=== PATIENT | male | born 2005 | race African-American/Black ===

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

== ENCOUNTER 2024-01-06 10:28 | Outpatient (AMB) | payer MEDICAID, SELFPAY ==
--- NOTE | 2024-01-06 10:40 | A.OFFVIS_ITS ---
Intake Visit Reasons: penile cyst Intake Note: New Patient presents today for initial visit to establish treatment for : Penile Cyst Urology Medications: none Allergies to Antibiotic: none Blood Thinner: none Coat Repair Inspector Required: No Accompanied by: Unknown Allergies No Known Allergies [No Known Allergies*] Allergy (Verified 01/06/24 11:04) Medication List - Last Reconciled 01/06/24 by DEVONTE Avalos doxycycline hyclate 100 mg PO BID 14 days HPI Comments Details: Allen Gordon is a pleasant 18-year-old male patient of Dr. Seaman who was accompanied by his cream at today's office visit. He has a past medical history of depression, asthma, and anxiety. He presents to the office today as a new patient for penile lesion. In discussion with the patient today reports area of concern has been present for over 1-2 years. He denies any pain. He reports having followed up with his PCP at which time recommendations were made for urology referral for further assessment evaluation. In assessment of the patient today the penis is circumcised. It appears patient has very small er aser size sebaceous cyst to the base/posterior side on the shaft of the penis. Upon assessment today no open areas or drainage noted. Upon pressure to the area no drainage noted. However patient does report at times fluid like material does come out of the area. When asked he does report he is sexually active with one partner however does not use condoms/contraception. He otherwise denies any bothersome urinary issues or concerns. He denies urinary urgency, urinary frequency, incontinence, nocturia, hematuria, dysuria, foul smelling urine, changes to urinary stream, flank pain, fever, and or chills. He is happy with his current voiding parameters. In office urinalysis results reviewed with the patient today. He otherwise offers no other issues or concerns at this time. [facility] Medical History Depression Anxiety Asthma Social History Alcohol intake: never Patient Tobacco Use Status: Current everyday Tobacco user Substance Use Type: Marijuana Review of Systems Const All systems reviewed & are unremarkable except as noted in HPI and below Physical Exam Const General: cooperative, healthy appearing, comfortable, no acute distress, well developed, alert and awake Nutritional Appearance: thin Orientation/consciousness: patient oriented x3 Limitations: no limitations HEENT Head: Yes normal to inspection, Yes normocephalic and Yes atraumatic Ears: hearing grossly normal bilaterally Eyes General: appearance normal, both eyes and all related structures Neck Neck: Yes normal visual inspection and Yes trachea midline Chest Chest palpation & inspection: normal inspection of the chest Resp Effort & Inspection: normal respiratory effort and able to speak in complete sentences Cardio Rate: regular rate GI Inspection: Yes normal to inspection Other: as per HPI General: Yes no CVA tenderness Penis: normal penis and circumcised Meatus: meatus normal Scrotum: scrotum normal Testes: Testes normal Back/Spine/Pelvis Back: no CVA tenderness Skin General skin exam: no rashes or lesions noted Neuro General: patient oriented x3 Extrem General: Yes normal to inspection Psych Appearance: grossly normal and well kempt Mental Status: mental status grossly normal Speech and movement: Normal speech and movement present and Clear speech present Affect: normal affect Attitude: cooperative Thought process: Normal thought process present Thought content: Normal thought content present Insight: Fair insight present (Psych) Judgement: Fair judgement present (Psych) Results AMB Urinalysis, Automated UA Leukoctes 0 Blayne/uL Last Edit by [employer] on 01/06/24 11:02 UA Nitrite Negative Last Edit by [employer] on 01/06/24 11:02 UA Urobilinogen 0.2 mg/dL Last Edit by [employer] on 01/06/24 11:02 UA Protein 0 mg/dL Last Edit by [employer] on 01/06/24 11:02 UA pH 7.0 Last Edit by [employer] on 01/06/24 11:02 UA Blood 0 Artur/uL Last Edit by [employer] on 01/06/24 11:02 UA Specific [place] 1.015 Last Edit by [employer] on 01/06/24 11:02 UA Ketone Negative Last Edit by [employer] on 01/06/24 11:02 UA Bilirubin 0 mg/dL Last Edit by [employer] on 01/06/24 11:02 UA Glucose 0 mg/dL Last Edit by [employer] on 01/06/24 11:02 Results Reviewed Results Reviewed: Laboratory Last Values Urine pH (Auto) 7.0 01/06/24 10:47 Specific [place] (Auto) 1.015 01/06/24 10:47 Urine Protein (Auto) 0 mg/dL 01/06/24 10:47 Glucose (UA)(Auto) 0 mg/dL 01/06/24 10:47 Urine Ketones (Auto) Negative 01/06/24 10:47 Urine Blood (Auto) 0 Artur/uL 01/06/24 10:47 Urine Nitrite (Auto) Negative 01/06/24 10:47 Urine Bilirubin (Auto) 0 mg/dL 01/06/24 10:47 Urine Urobilinogen (Auto) 0.2 mg/dL 01/06/24 10:47 Leukocyte Esterase (Auto) 0 Blayne/uL 01/06/24 10:47 Assessment & Plan Assessment & Plan (1) Sebaceous cyst of penis: Code(s): N48.89 - Other specified disorders of penis Category: Medical Plan In office urinalysis results reviewed with the patient today; as noted above. Discussed at length proper care of area; discussed avoiding shaving; discussed trimming. Start doxycycline as discussed and prescribed. Discuss treatment options for sebaceous cyst to include incision and drainage; risks and benefits of these interventions were discussed; versus surveillance monitoring. Discussed and stressed the importance of STD prevention. Patient reports be happy with current voiding parameters He denies any bothersome urinary issues or concerns. Follow-up in 1-2 months; or sooner with any issues, concerns, and or questions. Orders: Orders AMB Urinalysis Automated Today Z13.9 - Encounter for screening, unspecified Medications: New doxycycline hyclate 100 mg PO BID 28 tabs 0RF 14 days N39.0 - Urinary tract infection, site not specified, N45.1 - Epididymitis Patient Instructions: The patient had an opportunity to ask questions regarding the treatment plan. All questions were answered. Physical exam, labs, and imaging were discussed and reviewed in detail. As well as risks, benefits, and discussion of treatment choices. No major barriers to understanding were identified. The patient expressed understanding and agreement with the above treatment plan. The patient was made aware they should contact our office by phone for worsening of their current condition, the appearance of new symptoms, or with any questions or concerns. Compliance is encouraged with any medications and follow up testing that is ordered. It is a privilege to be allowed the opportunity to participate in? your urological care.? Again, if you have any questions or concerns If you have any questions or concerns please do not hesitate to contact me. The office is [phone]. This note is constructed using voice recognition software. While every effort has been made to ensure accuracy hides soaker errors may have been included. Yours sincerely, DEVONTE Avalos Coding Level of Care Code New Pt Level 4 (96109) Diagnoses Sebaceous cyst of penis N48.89
== END 2024-01-06 11:04 | disposition home or self-care (01) ==
PROVIDERS: PCP Pediatrics; Visit Provider Nurse Practitioner Family
DX: N48.89 Other specified disorders of penis (principal); Z13.9 Encounter for screening, unspecified
CPT/HCPCS: 99204

== ENCOUNTER → 2024-01-06 10:28 | Outpatient (BNVA) | payer OTHER, MEDICAID, SELFPAY | PROVIDERS: PCP Pediatrics; Visit Provider Nurse Practitioner Family | DX: N48.89 Other specified disorders of penis (principal) | CPT/HCPCS: 81003; 99212 ==

== ENCOUNTER 2024-05-27 08:25 | Emergency (ER) | payer OTHER, SELFPAY ==
--- NOTE | ~2024-05-27 | XR_ITS ---
EXAMINATION: XR KNEE, LEFT CLINICAL INFORMATION: Left knee pain after injury COMPARISON: None available. TECHNIQUE: Four views of the left knee. FINDINGS: There is a moderate joint effusion. There is an ill-defined radiodensity, overlying the intercondylar notch best seen on the lateral view, uncertain the location or significance. Internal derangement with an osseous avulsion is a possibility here. MRI advised. XR/XR knee LT 2V IMPRESSION: Joint effusion and question of internal derangement. Electronically signed by: Dmitriy Lee MD 05/27/2024 09:07 AM EDT
[2024-05-27 08:31] VITALS: BP 103/65; PULSE 70; RESP 16; TEMP 36.9; O2SAT 98; BMI 16.5
--- NOTE | 2024-05-27 08:36 | ED_ITS ---
HPI - General Adult General Chief complaint: Extremity Injury, Lower Stated complaint: knee popped Time Seen by Provider: 05/27/24 08:36 Source: patient Mode of arrival: wheelchair Limitations: no limitations History of Present Illness ED Provider: Daylin Garcia PA-C HPI narrative: Patient is a 18 year old assigned male at with a history of depression, anxiety, and asthma presenting to the emergency department today with left knee pain. Patient states that he was playing football yesterday when he tried to do a spin move and felt / heard a pop in his left knee. Patient denies any dizziness, lightheadedness, abdominal pain, nausea, vomiting, fever, chills, blurry vision, double vision, loss of vision, chest pain, difficulty breathing, shortness of breath, back pain, night sweats, pain with urination, increased urinary frequency, increased urinary urgency, blood in his urine or stool, syncope or a near syncopal episode, bowel incontinence, bladder incontinence, or any other complaints at this time. Onset (ago): day(s) (1) Location: left and lower extremity Relieving factors: immobilization Exacerbating factors: movement Associated symptoms: denies other symptoms Treatments prior to arrival: none Related Data Previous Rx's ?Medication ?Instructions ?Recorded doxycycline hyclate 100 mg tablet 100 mg PO BID 14 days #28 tabs 01/06/24 Allergies Allergy/AdvReac Type Severity Reaction Status Date / Time No Known Allergies Allergy Verified 05/27/24 08:33 [No Known Allergies*] Review of Systems Constitutional: Constitutional: Reports no additional constitutional complaints, Denies chills, Denies fever(s) and Denies night sweats Eyes: Eyes: Reports no additional eye complaints, Denies blurry vision, Denies change in vision, Denies diplopia, Denies eye discharge, Denies loss of vision and Denies eye pain ENT: Denies dizziness Cardiovascular: Cardiovascular: Reports no additional cardiovascular complaints, Denies chest pain, Denies lightheadedness, Denies Loss of Consciousness and Denies dyspnea Respiratory: Respiratory: Reports no additional respiratory complaints and Denies dyspnea Gastrointestinal: Gastrointestinal: Reports no additional gastrointestinal complaints, Denies abdominal pain, Denies melena, Denies hematochezia, Denies change in bowel habits and Denies change in stool character Genitourinary: Genitourinary: Reports no additional male genitourinary complaints, Denies hematuria, Denies oliguria, Denies difficulty urinating, Denies dysuria, Denies urinary frequency, Denies urinary hesitancy, Denies urinary incontinence and Denies urinary urgency Musculoskeletal: Musculoskeletal: Reports no additional musculoskeletal complaints, Denies numbness and Denies tingling Comments: left knee pain Neurologic: Denies dizziness, Denies loss of vision, Denies numbness and Denies tingling Psychiatric: Psychiatric: Reports no additional psychiatric complaints Endocrine: Endocrine: Reports no additional endocrine complaints Hematologic/Lymphatic: Hematologic/Lymphatic: Reports no additional hemato logic/lymphatic complaints Allergic/Immunologic: Allergic/Immunologic: Reports no additional allergic/immunologic complaints [facility] Past Medical History Attestation statement: The following information was validated with the patient. Source: old records reviewed and nursing notes reviewed Medical History Depression Anxiety Asthma Social History Social History Alcohol intake: never Patient Tobacco Use Status: Current everyday Tobacco user Smoked in Last 30 Days: No Use of substances other than those prescribed or required for medical reasons: No Substance Use Type: Marijuana Advance Directives: No Physical Exam ED Vital Signs: Vital Signs - 24 hr 05/27/24 08:31 05/27/24 08:56 05/27/24 09:49 Temperature 98.4 F 98.0 F 98.2 F Pulse Rate 70 78 78 Respiratory Rate 16 16 18 Blood Pressure 103/65 104/60 104/60 Pulse Oximetry 98 98 Oxygen Delivery Method Room Air Room Air Room Air BMI result Body Mass Index 16.5 Const General: cooperative, no acute distress, alert and awake Nutritional Appearance: well nourished Orientation/consciousness: patient oriented x3 Limitations: no limitations HENMT Head: Yes normal to inspection and Yes atraumatic Ears: hearing grossly normal bilaterally and external ears normal General nose exam: Normal external nose present, no nasal discharge noted and no epistaxis Face and sinus: Yes normal facial exam, No abrasion and No laceration Mouth: Normal oral and palatal mucosa present, no drooling and no muffled voice Eyes General: appearance normal, both eyes and all related structures Periorbital: periorbital findings normal Eyelids: Yes eyelids normal Conjunctivae: conjunctivae normal Pupils: Equal, round and reactive pupils present EOM: EOMs intact bilaterally Neck Neck: Yes normal visual inspection, Yes full ROM and Yes no lymphadenopathy Chest Chest palpation & inspection: normal inspection of the chest Resp Effort & Inspection: normal respiratory effort and able to speak in complete sentences GI Inspection: Yes normal to inspection Neuro General: patient oriented x3 and moves all extremities Cranial nerves: Yes Equal, round and reactive pupils present Cognition (Neuro): normal cognition Extrem Other: pain with left knee ROM positive anterior drawer test of the left knee General: Yes normal to inspection and Yes capillary refill normal Psych Appearance: grossly normal Mental Status: mental status grossly normal Affect: normal affect Attitude: cooperative Thought process: Normal thought process present Thought content: Normal thought content present Insight: Good insight present (Psych) Procedures Orthopedic Splinting/Casting Injury #1: Side: left Lower Extremity Injury Location: knee Lower Extremity Immobilizer: knee immobilizer Other Orthopedic Equipment: crutches Medical Decision Making Medical Decision Making MDM Narrative: Patient is a 18 year old assigned male at with a history of anxiety, depression, and asthma presenting to the emergency department today with left knee pain. Patient's physical exam was as noted in the physical exam portion of this note. Patient's left knee x-ray showed a joint effusion and question of internal derangement. Patient's clinical presentation is most consistent with an ACL injury vs. sprain. I explained my physical exam findings as well as all test results to the patient. I answered all questions asked by the patient. Patient's left knee was placed in an immobilizer, without incident. Patient's PMS was intact prior to and after immobilizer was placed. Patient was given crutches and crutch instructions. I stressed the importance of the patient taking his medication as directed (either prescribed or as the over the counter packaging recommends). I stressed the importance of the patient following up with his primary care provider and an orthopedic provider. I stressed the importance of the patient returning to the emergency department immediately if his symptoms were to worsen or if he were to develop any dizziness, shortness of breath, difficulty breathing, chest pain, blurry vision, loss of vision, nausea, vomiting, abdominal pain, fever, chills, back pain, or any other complaints. Patient verbalized agreement and understanding with this treatment plan and discharge. Differential Diagnosis Differential Diagnoses: The differential diagnosis associated with the presentation includes Left ACL injury Left knee sprain Left knee strain Admission/Observation Consideration of admission/observation: Escalation of care including admission/observation considered Patient would have been admitted to the hospital had his work up had any findings where hospital admission was appropriate and his clinical presentation warranted hospital admission. Independent Interpretation I performed an independent interpretation of an: Plain X-Ray Interpretation: My interpretation is in agreement with the radiologist's impression of this imaging study. EXAMINATION: XR KNEE, LEFT CLINICAL INFORMATION: Left knee pain after injury COMPARISON: None available. TECHNIQUE: Four views of the left knee. FINDINGS: There is a moderate joint effusion. There is an ill-defined radiodensity, overlying the intercondylar notch best seen on the lateral view, uncertain the location or significance. Internal derangement with an osseous avulsion is a possibility here. MRI advised. XR/XR knee LT 2V IMPRESSION: Joint effusion and question of internal derangement. Electronically signed by: Dmitriy Lee MD 05/27/2024 09:07 AM EDT Dictated By: Dmitriy Lee MD Signed By: Electronically signed by Dmitriy Lee MD 05/27/24 0907 Radiology Impression Discussion of test interpretation with radiology: I have reviewed the radio logist's reading. Discharge Plan Discharge Clinical Impression: Injury of knee, Knee sprain Patient Disposition: Home, Self-Care Instructions: Knee Sprain (DC), Crutch Instructions (ED) Additional Instructions: Your examination and x-ray of the left knee are concerning for an ACL injury. Please wear the knee immobilizer as directed. Follow up with your primary care provider and an orthopedic provider. Return to the emergency department immediately if your symptoms worsen or if you develop any dizziness, shortness of breath, difficulty breathing, chest pain, blurry vision, loss of vision, nausea, vomiting, abdominal pain, fever, chills, back pain, or any other complaints. Prescriptions: No Action doxycycline hyclate 100 mg tablet 100 mg PO BID 14 Days Qty: 28 0RF Referrals: [facility] Family Medicine [Provider Group] (Call to establish and follow up with a primary care provider. If you already have a primary care provider, please follow up with them.) [facility], [place] [Provider Group] (Call to establish and follow up with a primary care provider. If you already have a primary care provider, please follow up with them.) [facility],[place] [Provider Group] (Call to establish and follow up with a primary care provider. If you already have a primary care provider, please follow up with them.) [facility] [Provider Group] (Call to establish and follow up with an orthopedic provider. ) Stand Alone Forms: Work/School Release Interventions: ED Discharge Assessment Last Done: 05/27/24 09:49 Discharge Date/Time: 05/27/24 09:49 Print Language: [place]i
[2024-05-27 08:56] VITALS: BP 104/60; PULSE 78; RESP 16; TEMP 36.7
[2024-05-27 09:49] VITALS: BP 104/60; PULSE 78; RESP 18; TEMP 36.8; O2SAT 98
== END 2024-05-27 09:49 | disposition home or self-care (01) ==
PROVIDERS: Emergency Provider Emergency Medicine Emergency Medical Services
DX: S83.92XA Sprain of unspecified site of left knee, initial encounter (principal); X58.XXXA Exposure to other specified factors, initial encounter; Y93.61 Activity, american tackle football; Y92.9 Unspecified place or not applicable; Y99.9 Unspecified external cause status; M25.562 Pain in left knee
CPT/HCPCS: 73560; 99283; 99284

== ENCOUNTER 2024-07-02 10:17 | Outpatient (REF) | payer MEDICARE, MEDICAID, SELFPAY | END 2024-07-02 10:18 | disposition home or self-care (01) | LOC: HO.HOSX 10:17 | PROVIDERS: Visit Provider Physician Assistant | DX: Z13.89 Encounter for screening for other disorder (principal) ==

== ENCOUNTER 2024-07-13 12:07 | Outpatient (REF) | payer MEDICARE, MEDICAID, SELFPAY | END 2024-07-13 12:08 | disposition home or self-care (01) | LOC: HO.HOSX 12:07 | PROVIDERS: Visit Provider Physician Assistant | DX: M25.562 Pain in left knee (principal); M23.92 Unspecified internal derangement of left knee | CPT/HCPCS: 73560; 99202 ==

== ENCOUNTER 2024-07-13 12:51 | Outpatient (AMB) | payer MEDICARE, MEDICAID, SELFPAY ==
--- NOTE | 2024-07-13 13:05 | A.OFFVIS_ITS ---
Intake Visit Reasons: NON [employer]CHOOL [employer]ER-Injury of knee, Knee sprain-DOI 05/27/24 Intake Note: Allen a 18 year old male who presents today for a new patient evaluation of left knee, DOI 05/26/24. Patient reports that he was playing football when he attempted a spin move and felt/heard a pop. He presented to [facility] ER the followi ng day, x-rays were taken, placed in a knee immobilizer and was referred to orthopedics. Currently he has pain and tugging at the anterior and posterior aspect knee with ambulation. No pain with rest. No previous tx. Allergies No Known Allergies [No Known Allergies*] Allergy (Verified 07/13/24 13:15) Medication List - Last Reconciled 07/13/24 by Macey Morton PA-C No Known Home Meds HPI HPI NON C[employer]ICAL [employer]CHO[employer] TE[employer]ER-Injury of knee, Knee sprain-DOI 05/27/24: Details: 18-year-old male who presents to the office today for an evaluation of left knee injury, 05/27/24. He reports he was playing football when he attempted a spin move and felt and heard a ?pop? in his knee. He was seen at ER the following day where he x-rays were performed, he was placed in a knee immobilizer and he was referred to our office. He currently states he has pain and ?tugging? at the anterior aspect and posterior aspect of his knee with ambulation. His pain is alleviated with rest. He has not had any treatment in the past. [facility] Medical History Depression Anxiety Asthma Social History (Updated 07/13/24 @ 13:10 by SHWETA Farnsworth) Alcohol intake: never Patient Tobacco Use Status: Current everyday Tobacco user Substance Use Type: Marijuana Current occupational status: unemployed and student Review of Systems Const All systems reviewed & are unremarkable except as noted in HPI and below Physical Exam Const General: cooperative, healthy appearing, comfortable, no acute distress, well developed and alert Orientation/consciousness: patient oriented x3 HEENT Head: Yes normal to inspection, Yes normocephalic and Yes atraumatic Eyes General: appearance normal, both eyes and all related structures Resp Effort & Inspection: normal respiratory effort and able to speak in complete sentences Cardio Rate: regular rate Peripheral pulses: Peripheral pulses 2+ throughout GI Palpation (GI): Soft to palpation Skin Lesions: no lesions Rashes: no rashes Neuro General: patient oriented x3 Extrem Other: Left knee: Skin intact, no erythema or joint effusion. lateral retropatellar tenderness present. Full ROM with crepitus. Negative Branden?s. Mild laxity when compared to contralateral side. NVI. Results Reviewed Results Reviewed: XR knee LT 2V IMPRESSION: Joint effusion and question of internal derangement. Assessment & Plan Assessment & Plan (1) Internal derangement of left knee: Code(s): M23.92 - Unspecified internal derangement of left knee Category: Medical Plan An MRI of the left knee was ordered to further evaluate the integrity of meniscus and surrounding structures. He was placed in a hinge knee brace in the office today. He will discontinue the immobilizer and crutches and see me back once the scan is complete. Orders: Orders XR knee LT 1V Today M25.562 - Pain in left knee MR knee LT wo con Today M23.92 - Unspecified internal derangement of left knee Patient Instructions: Scribed for Macey Morton PA-C, by Ang Lofton medical billing coder, on 07/13/2024 at 1:15 PM EST.? I, Macey Morton PA-C, have personally reviewed and agree with the information entered by the scribe. Coding Level of Care Code New Pt Level 3 (99627) Complex EM visit Add On G2211 Diagnoses Internal derangement of left knee M23.92
== END 2024-07-13 13:46 | disposition home or self-care (01) ==
PROVIDERS: Visit Provider Physician Assistant
DX: M23.92 Unspecified internal derangement of left knee (principal)
CPT/HCPCS: 99203; G2211